=== PATIENT | male | born 1950 | race Caucasian/White ===

== ENCOUNTER 2022-01-17 11:11 | Outpatient (CLI) | payer OTHER, SELFPAY ==
[2022-01-17 21:17] LABS: Chloride* 100 mmol/L (96-114); Sodium* 138 mmol/L (135-149)
[2022-01-17 21:18] LABS: Potassium* 3.7 mmol/L (3.6-5.1)
[2022-01-17 21:20] LABS: Blood Urea Nitrogen* 25 mg/dL (7-30); Carbon Dioxide* 30 mmol/L (20-32); Creatinine* 0.9 mg/dL (0.5-1.5); Estimated Glomerular Filt Rate 92 ml/min
[2022-01-17 21:21] LABS: Calcium* 9.4 mg/dL (8.4-10.6); Glucose* 141 mg/dL (60-115)
== END 2022-01-17 11:12 | disposition home or self-care (01) ==
LOC: LKVREF 11:12
PROVIDERS: PCP Family Medicine; Visit Provider Family Medicine
DX: I10 Essential (primary) hypertension (principal)
CPT/HCPCS: 80048

== ENCOUNTER 2022-04-21 13:01 | Outpatient (CLI) | payer OTHER, SELFPAY ==
[2022-04-21 21:55] LABS: Albumin* 4.6 g/dL (3.3-5.0)
[2022-04-21 21:56] LABS: Chloride* 100 mmol/L (96-114); Sodium* 140 mmol/L (135-149)
[2022-04-21 21:58] LABS: Aspartate Amino Transferase* 25 U/L (12-35); Bilirubin Total* 0.6 mg/dL (0.1-1.5); Carbon Dioxide* 32 mmol/L (20-32); Cholesterol* 143 mg/dL (90-199); Creatinine* 0.9 mg/dL (0.5-1.5); Estimated Glomerular Filt Rate 92 ml/min; Total Protein* 7.6 g/dL (6.0-8.3)
[2022-04-21 21:59] LABS: Alanine Aminotransferase* 28 U/L (4-50); Alkaline Phosphatase* 77 U/L (40-150); Blood Urea Nitrogen* 20 mg/dL (7-30); Calcium* 10.1 mg/dL (8.4-10.6); Glucose* 93 mg/dL (60-115); HDL Cholesterol* 30 mg/dL (>=40); LDL Cholesterol Calculated 72 mg/dL (<100); Triglycerides* 205 mg/dL (40-149)
[2022-04-23 16:12] LABS: Prostate Specific Antigen%Free 18 %; Prostate Specific AntigenTotal 5.6 ng/mL (0.0-4.0)
== END 2022-04-21 13:02 | disposition home or self-care (01) ==
PROVIDERS: PCP Family Medicine; Visit Provider Family Medicine
DX: Z00.00 Encounter for general adult medical examination without abnormal findings (principal); E78.5 Hyperlipidemia, unspecified; I10 Essential (primary) hypertension; I63.9 Cerebral infarction, unspecified; R79.89 Other specified abnormal findings of blood chemistry; R97.20 Elevated prostate specific antigen [PSA]; R53.83 Other fatigue
CPT/HCPCS: 80053; 80061; 84153; 84154; 84443

== ENCOUNTER 2023-05-28 10:40 | Outpatient (CLI) | payer MEDICARE, SELFPAY | END 2023-05-28 10:41 | disposition home or self-care (01) | PROVIDERS: PCP Family Medicine; Visit Provider Family Medicine | DX: Z00.00 Encounter for general adult medical examination without abnormal findings (principal); R53.83 Other fatigue; R73.03 Prediabetes; E66.3 Overweight; I10 Essential (primary) hypertension; E78.5 Hyperlipidemia, unspecified; R79.89 Other specified abnormal findings of blood chemistry; R97.20 Elevated prostate specific antigen [PSA]; N40.1 Benign prostatic hyperplasia with lower urinary tract symptoms; I63.9 Cerebral infarction, unspecified | CPT/HCPCS: 80053; 80061; 82652; 84443; G0103 ==

== ENCOUNTER 2023-06-03 09:18 | Outpatient (CLI) | payer MEDICARE, SELFPAY ==
--- OUTSIDE RECORDS SUMMARY | 2023-06-03 09:41 | XMS_ITS | Encounter Summary ---
Author Name Unknown Organization [facility] Address [address] [place] [address] Care Team Providers Care Booth Usher Name Role Phone Zay Wheeler MD Primary Care Provider +1- [phone] Encounter Details Date Type Department Care Team Description 07/07/1997 Orders Only Emerita Johnson Social History Tobacco Use Types Packs/Day Years Used Date Smoking Tobacco: Never Assessed Sex and Gender Information Value Date Recorded Sex Assigned at Not on file Gender Identity Not on file Sexual Orientation Not on file documented as of this encounter Plan of Treatment Not on file documented as of this encounter Visit Diagnoses Not on filedocumented in this encounter Care Teams Booth Usher Relationship Specialty Start Date End Date Zay Wheeler MD [facility] [address] [place] [address] PCP - General 07/13/1997 documented as of this encounter
--- OUTSIDE RECORDS SUMMARY | 2023-06-03 09:41 | XMS_ITS | Encounter Summary ---
Author Name Unknown Organization [facility] Address [address] [place] [address] Care Team Providers Care Flotation Tank Operator Name Role Phone Zay Wheeler MD Primary Care Provider +1- [phone] Encounter Details Date Type Department Care Team Description 07/05/1997 Orders Only Cure, Winston Mann MD [address] [place] [address] [address] Social History Tobacco Use Types Packs/Day Years Used Date Smoking Tobacco: Never Assessed Sex and Gender Information Value Date Recorded Sex Assigned at Not on file Gender Identity Not on file Sexual Orientation Not on file documented as of this encounter Plan of Treatment Not on file documented as of this encounter Visit Diagnoses Not on filedocumented in this encounter Care Teams Flotation Tank Operator Relationship Specialty Start Date End Date Zay Wheeler MD [facility] [address] [place] [address] PCP - General 07/13/1997 documented as of this encounter
--- OUTSIDE RECORDS SUMMARY | 2023-06-03 09:41 | XMS_ITS | Data Portability ---
Author Name Unknown Address [address] [place] [address] Phone [phone] Organization [facility] Address [address] [facility] [address] [place] [address] Assessment No assessment recorded. Plan of Treatment Reminders Order Date Submit Date Provider Last Modified By Organization Details Last Modified Time Details Appointments None recorded . Lab PSA, serum or plasma 023 07/01/[email or web address], [address], [address], 3 14:00:52 PSA, serum or plasma 021 05/14/[email or web address], [address], [address], 1 14:15:14 PSA, serum or plasma 020 01/11/20 20 [email or web address], [address] [place] [address], [address], 0 16:09:06 Referral None recorded . Procedures None recorded . Surgeries None recorded . Imaging None recorded . Medication Orders None recorded . Patient TargetsNo targets recorded. Patient Instructions Encounter Date Encounter Id Patient Instructions Last Modified By Organization Details Last Modified Time 07/01/2022 [id number] Stable. F/u 1 yr with PSA [email or web address] Not available 06/27/2022 21:58:00 05/14/2021 [id number] Transfer of care . Patient of Dr. Ha. New to me. Extensive review of multiple records, biopsy report, MRI report, old notes. 25 minutes spent in review and in visit. Stable. F/u 1 yr with PSA [email or web address] Not available 05/14/2021 14:14:15 01/11/2020 [id number] d/w pt. we reviewed his elevated psa. he had biopsies in 2009 and 2018. DAVE on both biopsies. aaron remains moderate size and smooth. today's psa is 4.5. we again reviewed ways to reduce prostate cancer risk (fh ca prostate). we will cont to monitor psa, aaron yearly given fh ca prostate. jason Not available 01/11/2020 14:29:32 Reason for Referral None Reported. Results Created Date Observation Date Name Description Value Unit Range Abnormal Flag LastModifiedBy Organization Detail LastModifiedTime 01/11/2020 PSA, serum or plasm a PSA, Total 4.5 ng/ml Not Available _[place] [address] [place] [address], [address], 01/11/2020 14:23:07 05/14/20 21 05/14/2021 PSA, serum or plasm a PSA, Total 5.9 ng/ml Not Available [address] [place] [address], [address], 05/14/2021 14:09:59 07/01/19 23 07/01/2022 PSA, serum or plasm a PSA 5.5 ng/ml 0-4.0 Not Available _[address], [address], 07/01/2022 14:00:05 Result Notes None recorded. Problems Name Status Onset Date Resolution Date Notes Provider Name and Address Organization Details Recorded Time Prostate specific antigen above reference range Active 01/22/20 12 R97.20 : Elevated prostate specific antigen [PSA] - Notes:DAVE on 2 biopsies 04/26/2010 and 05/23/2010. 01/22/2012 PSA 4.32 exam benign. 07/12/2017 PSA 3.96. 06/09/2017 PSA 5.1. AARON remain 2+ and normal. 09/30/2017 MRI prostate 55 mL. 1.3 cm right peripheral zone PI-RADS 3 lesion. No bone lesion or lymphadenopa thy. 10/19/2017 biopsy DAVE left base. MRI lesion benign. 01/11/2020 PSA 4.5. AARON stable 2+. 05/14/21: PSA 5.9 Tory Barraza [facility] 05/12/2023 12:10:26 Problem Notes None recorded. Procedures Surgical History Date Name Laterality Status Provider Name and Address Organization Details Recorded Time 1 MATTRESS PACKER/blood draw completed Geri De Luna [facility] 05/14/2021 13:43:18 0 PSA RESULTS completed Cynthia Drew [facility] 01/11/2020 14:24:20 Imaging Results None recorded. Procedure Notes None recorded. Medical Equipment None Reported. Allergies Allergen ID Allergen Name Allergen Category Reaction Reaction Severity Criticality Documentation Date Start Date Code Code System Note Provider Name and Address Organization Details Recorded Time 831900 hydrochlo rothiazid e medicatio n other Not available Not available 11/10/20192021 5487 RxNorm Tory Madi [facility] 3 12:10:11 769706 Lipitor medicatio n Not available Not available Not available 11/10/20192017 14386 5 RxNorm React ion: sever e back pain Not Available Pending sale to [facility] 0 00:46:25 [id number] simvastat in medicatio n Not available Not available Not available 11/10/20192017 38985 RxNorm React ion: sever e back pain Not Available Pending sale to [facility] 0 00:46:25 [id number] amlodipin e medicatio n other Not available Not available 05/12/20232021 40477 RxNorm Tory Barraza [facility] 3 12:10:11 Medications Name Sig Start Date Stop Date Status Note LastModified by Organization Details LastModified Time clonidine HCl 0.1 mg tablet TAKE 1 TABLET BY MOUTH AT BEDTIME active Not Available Not Available No t Available metoprolol succinate ER 50 mg tablet,exte nded release 24 hr 07/01 completed Not Available Not Available Not Available hydrocodone 5 mg-acetamin ophen 325 mg tablet 07/01 completed Not Available Not Available Not Available prednisone 20 mg tablet TAKE 3 TABLETS DAILY FOR 3 DAYS THEN 2 TABLETS DAILY FOR 3 DAYS THEN 1 TABLET DAILY FOR 3 DAYS 07/01 completed Not Available Not Available Not Available metoprolol succinate ER 100 mg tablet,exte nded release 24 hr TAKE ONE TABLET BY MOUTH EVERY DAY active Not Available Not Available No t Available chlorthalid one 25 mg tablet TAKE 1 TABLET BY MOUTH EVERY DAY active Not Available Not Available No t Available amlodipine 5 mg tablet TAKE ONE TABLET BY MOUTH EVERY DAY active Not Available Not Available No t Available triamcinolo ne acetonide 0.1 % topical cream APPLY TOPICALLY TWICE DAILY active Not Available Not Available No t Available hydrocortis one 2.5 % topical cream with perineal applicator APPLY ONE APPLICATI ON EXTERNAL TWICE A DAY 07/01 completed Not Available Not Available Not Available erythromyci n 5 mg/gram (0.5 %) eye ointment 07/01 completed Not Available Not Available Not Available gabapentin 300 mg capsule TAKE TWO CAPSULES BY MOUTH FOUR TIMES A DAY active Not Available Not Available No t Available methylpredn isolone 4 mg tablets in a dose pack active Not Available Not Available Not Available ketoconazol e 2 % topical cream ONE APPLICATI ON TOPICALLY DAILY NEEDED FOR RASH active Not Available Not Available No t Available losartan 100 mg tablet TAKE ONE TABLET BY MOUTH EVERY DAY active Not Available Not Available No t Available fluticasone propionate 50 mcg/actuati on nasal spray,suspe nsion 07/01 completed Not Available Not Available Not Available diazepam 5 mg tablet 07/01 completed Not Available Not Available Not Available amoxicillin 875 mg-potassiu m clavulanate 125 mg tablet 07/01 completed Not Available Not Available Not Available oxycodone 5 mg tablet 07/01 completed Not Available Not Available Not Available hydroxyzine pamoate 25 mg capsule 07/01 completed Not Available Not Available Not Available rosuvastati n 20 mg tablet TAKE ONE TABLET BY MOUTH EVERY DAY active Not Available Not Available No t Available Fluzone High-Dose 2019-20 (PF) 180 mcg/0.5 mL intramuscul ar syringe 02/07 /2023 completed Not Available Not Available Not Available Vitals Date Recorded Body height Body mass index (BMI) Body weight Provider Name and Address Organization Details Last Updated DateTime 07/01/2022 177.8 cm 31.6 kg/m2 38783.32 g Daria Cortez [facility] 07/01/2022 13:56:53 Date Recorded Body height Body mass index (BMI) Body weight Body temperature Provider Name and Address Organization Details Last Updated DateTime 01/11/2020 177.8 cm 31.6 kg/m2 29234.32 g 97.5 [degF] Cynthia Drew [facility] 01/11/2020 14:06:10 Date Recorded Body height Body mass index (BMI) Body weight Provider Name and Address Organization Details Last Updated DateTime 05/14/2021 177.8 cm 31.6 kg/m2 95305.32 g Geri De Luna [facility] 05/14/2021 13:40:39 Social History Question Answer Notes LastModified by Organizat ion Details LastModified Time Tobacco Smoking Status Former Smoker Tory Barraza [facility] 05/12/2023 12:12:35 What Is Your Level Of Alcohol Consumption? None [email or web address] Information not available 05/12/2023 What Was The Date Of Your Most Recent Tobacco Screening? 07/01/2022 [email or web address] Information not available 07/01/2022 Do You Or Have You Ever Used Smokeless Tobacco? Never Used Smokeless Tobacco [email or web address] Information not available 01/11/2020 Sex: Male Functional Status None recorded. Mental Status None recorded. Family History Relationship Description Onset Age of this Age Resolved Age Notes Father Family history of pr ostate cancer Medical History Condition Response Diabetes N Sexually Transmitted Infection N Other Y Bleeding Disorder N High Blood Pressure Y Kidney Stones N Cancer N Lung Disease N Depression N High Cholesterol Y GERD/Acid Reflux N Heart Disease N Immunizations Vaccine Type Date Status Provider Name and Address Organization Details Recorded Time zoster, unspecified formulation 09/20/2001 completed Tory Barraza [facility] 05/12/2023 12:13:52 pneumococcal polysaccharide PPV23 11/22/2020 [facility] 05/12/2023 12:10:32 influenza, high-dose, quadrivalent 06/03/2021 completed Tory Barraza null, [facility] 05/12/2023 12:10:32 influenza, high-dose, quadrivalent 04/21/2022 completed Tory Barraza null, [facility] 05/12/2023 12:10:32 Influenza vaccine, quadrivalent, adjuvanted 02/20/2020 completed Tory Barraza null, [facility] 05/12/2023 12:10:32 Influenza vaccine, quadrivalent, adjuvanted 03/12/2021 completed Tory Barraza null, [facility] 05/12/2023 12:10:32 COVID-19, mRNA, LNP-S, PF, 30 mcg/0.3 mL dose 07/28/2020 completed Tory Barraza null, [facility] 05/12/2023 12:10:32 COVID-19, mRNA, LNP-S, PF, 30 mcg/0.3 mL dose 08/18/2020 completed Tory Barraza null, [facility] 05/12/2023 12:10:32 COVID-19, mRNA, LNP-S, PF, 30 mcg/0.3 mL dose 03/17/2021 completed Tory Barraza null, [facility] 05/12/2023 12:10:32 Tdap 11/24/2007 completed Tory Barraza null, [facility] 05/12/2023 12:10:32 Tdap 05/12/2011 completed Tory Barraza null, [facility] 05/12/2023 12:10:32 Pneumococcal conjugate PCV 13 12/06/2018 completed Tory Barraza null, [facility] 05/12/2023 12:10:32 Influenza, high dose seasonal 07/08/2018 completed Tory Barraza null, [facility] 05/12/2023 12:10:32 Influenza, high dose seasonal 05/12/2019 completed Tory Barraza null, [facility] 05/12/2023 12:10:32 Influenza, seasonal, injectable 03/10/2003 completed Tory Barraza null, [facility] 05/12/2023 12:10:32 Influenza, seasonal, injectable 03/14/1999 completed Tory Barraza null, [facility] 05/12/2023 12:10:32 Influenza, seasonal, injectable 03/17/2005 completed Tory Barraza null, [facility] 05/12/2023 12:10:32 Influenza, seasonal, injectable 03/31/2002 completed Tory Barraza null, [facility] 05/12/2023 12:10:32 Influenza, seasonal, injectable 04/22/2000 completed Tory Barraza null, [facility] 05/12/2023 12:10:32 Influenza, seasonal, injectable, preservative free 03/20/2014 completed [facility] 05/12/2023 12:10:32 Td (adult), 2 Lf tetanus toxoid, preservative free, adsorbed 07/05/1997 completed [facility] 05/12/2023 12:10:32 influenza, injectable, quadrivalent, preservative free 05/07/2015 completed Tory Barraza null, [facility] 05/12/2023 12:10:32 influenza, injectable, quadrivalent, preservative free 05/22/2016 completed [facility] 05/12/2023 12:10:33 Past Encounters Encounter ID Performer Location Encounter Start Date Encounter Closed Date Diagnosis/Indication [id number] Chris Ha MD [address] [address] 01/11/2020 13:52:12 01/11/2020 16:20:32 Prostate specific antigen above reference range Benign prostatic hyperplasia with outflow obstruction Nocturia [id number] Jerry Milligan MD [address] [address] 05/14/2021 13:27:30 05/14/2021 14:42:55 Prostate specific antigen above reference range [id number] MD ISAIAS Bashir[address] [address] 07/01/2022 13:42:31 07/04/2022 10:37:08 Prostate specific antigen above reference range Health Concerns Section Related Observation LastModified by Organization Detai ls LastModified Time None Recorded Concern Status LastModified by Organization Details LastModified Time None Recorded Advance Directives Directive None Recorded Payers Encounter Date Sequence Insurance Name Policy Number Policy Maldonado Covered Member ID Maldonado Member ID Guarantor Name 07/01/2022 1 [facility] [employer] - MEDICARE COST [id number] Johnathan Juan J Marr [id number] Johnathan Paulino Marr 05/14/2021 1 [employer] (MEDICARE REPLACEMENT/ ADVANTAGE - HMO) Johnathan Juan J Marr [id number] Johnathan Marr 01/11/2020 1 [employer] (MEDICARE REPLACEMENT/ ADVANTAGE - HMO) Johnathan Juan J Marr [id number] Johnathan Paulino Marr Notes Date Note Type Note Provider Name and Address Organization Details Recorded Time 01/11/2020 text/html HPI Notes: elevated psa, DAVE hx. Father with prostate cancer age 80 - advanced. treated with seeds. many years later unrelated cause. biopsy 2009 - DAVE on initial and f/u biopsy. last psa 5.1. f/u biopsy showed 1 area DAVE. prostate mri was pi rads 3. flow mildly decreased, nocturia 2x. Chris Ha MD [address] [facility],[address], [place], [address], [facility] 01/12/2020 14:19:19 05/14/2021 text/html HPI Notes: 05/14/21 Transfer of care. Patient of Dr. Ha. New to me. Extensive review of multiple records, biopsy report, MRI report, old notes. --Father with prostate cancer age 80 - advanced. treated with seeds. many years later unrelated cause flow mildly decreased, nocturia 2x. --History of PSA elevations and atypical biopsy twice in 2009. Family history of prostate cancer. 01/22/2012 PSA 4.32 exam benign. 07/12/2017 PSA 3.96. 06/09/2017 PSA 5.1. AARON remain 2+ and normal. 09/30/2017 MRI prostate 55 mL. 1.3 cm right peripheral zone PI-RADS 3 lesion. No bone lesion or lymphadenopathy. 10/19/2017 biopsy DAVE left base. MRI lesion benign. 01/11/2020 PSA 4.5. AARON stable 2+. --05/14/21 PSA 5.9. Nocturia 2x. Not on prostate meds. Jerry Milligan MD [address] [facility],[address], [place], [address], [facility] 05/14/2021 14:15:18 07/01/2022 text/html HPI Notes: 05/14/21 Transfer of care. Patient of Dr. Ha. New to me. Extensive review of multiple records, biopsy report, MRI report, old notes. --Father with prostate cancer age 80 - advanced. treated with seeds. many years later unrelated cause flow mildly decreased, nocturia 2x. --History of PSA elevations and atypical biopsy twice in 2009. Family history of prostate cancer. 01/22/2012 PSA 4.32 exam benign. 07/12/2017 PSA 3.96. 06/09/2017 PSA 5.1. AARON remain 2+ and normal. 09/30/2017 MRI prostate 55 mL. 1.3 cm right peripheral zone PI-RADS 3 lesion. No bone lesion or lymphadenopathy. 10/19/2017 biopsy DAVE left base. MRI lesion benign. 01/11/2020 PSA 4.5. AARON stable 2+. --05/14/21 PSA 5.9. Nocturia 2x. Not on prostate meds. 07/01/22: --Nocturia 2x. [place]. Daytime a few times. Stopped alcohol 6 mo ago (after stroke). apex anodular, base not felt. PSA 5.5. Plan 1 y f/u with PSA. Consider MRI if continued rise. Jerry Milligan MD [address] [facility],[address], [place], [address], [facility] 07/01/2022 14:15:57
--- OUTSIDE RECORDS SUMMARY | 2023-06-03 09:41 | XMS_ITS | Clinical Summary ---
Author Name Unknown Organization [facility] Address [address] [place] [address] Care Team Providers Care Rheumatologist Name Role Phone Zay Wheeler MD Primary Care Provider [phone]- [phone] Source Comments You are receiving this document as you are listed as the primary care provider,follow-up provider, or the patient has been referred to you for consultation.This is in compliance with the Medicare andCommunity [facility] Hospitalcaid EHR Incentive Program,which states Providers who transition their patient to another setting of careor provider of care or refers their patient to another provider of care shouldprovide summary care record for each transition of care or referral. [facility] Allergies Active Allergy Reactions Criticality Noted Date Comments Amlodipine Other, see comments Medium 12/05/2021 Swelling of ankles and feet Hydrochlorothiazide Other, see comments Medium 022 Back pain Medications Medication Sig Dispensed Refills Start Date End Date Status VIAGRA 50MG ORAL TABS 1/2 to 1 tab 30-60 inutes before sex 6 11 07/29/2002 Active cloNIDine (CATAPRES) 0.1 MG tablet Take 0.1 mg by mouth two times a day. 0 09/03/2021 Active losartan (COZAAR) 100 MG tablet Take 100 mg by mouth daily. 0 11/05/2021 Active metoprolol succinate (TOPROL XL) 100 MG 24 hour release tablet Take 100 mg by mouth daily. 0 11/05/2021 Active rosuvastatin (CRESTOR) 20 MG tablet Take 1 Tablet (20 mg) by mouth daily at bedtime. 0 12/07/2021 Active aspirin 325 MG tablet Take 1 Tablet (325 mg) by mouth daily. Do not start before December 08, 2021. 100 Tablet 3 12/08/2021 Active chlorthalidone (HYGROTON) 25 MG tabletIndications: Hypertension Take 1 Tablet (25 mg) by mouth daily. Indications: High Blood Pressure Disorder Do not start before December 08, 2021. 30 Tablet 0 12/08/2021 Active gabapentin (NEURONTIN) 300 MG capsuleIndications :Neuropathic Pain Take 1 Capsule (300 mg) by mouth three times a day. Indications: Neuropathic Pain 90 Capsule 0 12/07/2021 Active Active Problems Problem Noted Date Diagnosed Date Cerebrovascular accident (CV A) due to occlusion of right cerebellar artery 12/06/2021 Hyperlipidemia 12/05/2021 Essential hypertension 12/05/2021 Cervical radiculopathy 12/05/2021 Testicular hypofunction 08/25/2002 Overview: Other testicular hypofunction (HRC) Immunizations Name Administration Dates Next Due Flu Vac (3+ yrs) 03/10/2003,03/31/2002, 0,03/14/1999 Td 07/05/1997 Varicella 09/29/1997(Deferred: Immune by Ryan howell) Social History Tobacco Use Types Packs/Day Years Used Date Smoking Tobacco: Former Tobacco Cessation:Counseling Given: Not Answered Alcohol Use Standard Drinks/Week Comments Not Currently 0 (1 standard drink = 0.6 oz pur e alcohol) Sex and Gender Information Value Date Recorded Sex Assigned at Not on file Gender Identity Not on file Sexual Orientation Not on file Last Filed Vital Signs Vital Sign Reading Time Taken Comments Blood Pressure 110/58 02/04/2022 1:06 PM CDT Pulse 66 02/04/2022 1:06 PM CDT Temperature 36.2 ??C (97.2 ??F) 12/07/2021 1:00 PM CD T Respiratory Rate 16 12/07/2021 8:03 AM CDT Oxygen Saturation 99% 12/07/2021 1:00 PM CDT Inhaled Oxygen Concentration - - Weight 107.1 kg (236 lb 3.2 oz) 02/04/2022 1:06 PM CDT Height 181.6 cm (5' 11.5) 12/06/2021 1 1:00 AM CDT Body Mass Index 32.49 12/06/2021 11:00 AM CDT Plan of Treatment Health Maintenance Due Date Last Done Comments Colon Cancer Screening Plan Due 1950 Hep C Screening (Preventive Services) 1950 COVID-19 Vaccine (#1) 03/22/1951 Zoster/Shingles (1 of 2) 09/20/2001 DTaP/Tdap/Td (3 - Tdap) 05/12/2021 05/12/20 11, 11/24/2007, 07/05/1997 Influenza (#1) 2023 06/03/2021, 02/22, 02/20/2020, Additional history exists Medicare Annual Wellness Visit 05/25/2023 Cholesterol 12/05/2026 12/05/2021, 11/2002, 10/01/2001, Additional history exists Pneumococcal 65+ Yrs Completed 11/22/2020, 12/07/19 HepA Aged Out No longer eligi ble based on patient's age to complete this topic HepB Aged Out No longer eligi ble based on patient's age to complete this topic Hib Aged Out No longer eligi ble based on patient's age to complete this topic IPV (Polio) Aged Out No longer eligi ble based on patient's age to complete this topic MCV4 Aged Out No longer eligi ble based on patient's age to complete this topic Advance Directives Latest Code Status on File Code Status Date Activated Date Inactivated Comments Full Code 12/05/2021 5:55 PM 12/07/2021 3:28 PM Care Teams Rheumatologist Relationship Specialty Start Date End Date Zay Wheeler MD [address] [address] PCP - General 07/13/1997
--- OUTSIDE RECORDS SUMMARY | 2023-06-03 09:42 | XMS_ITS | Encounter Summary ---
Author Name Unknown Organization [facility] Address [address], [place] [address] Care Team Providers Care Freight Elevator Operator Name Role Phone Zay Wheeler MD Primary Care Provider [phone]- [phone] Encounter Details Date Type Department Care Team Description 09/05/1995 Orders Only Isaiah Padgett [address] [id number] Social History Tobacco Use Types Packs/Day Years Used Date Smoking Tobacco: Never Assessed Sex and Gender Information Value Date Recorded Sex Assigned at Not on file Gender Identity Not on file Sexual Orientation Not on file documented as of this encounter Plan of Treatment Not on file documented as of this encounter Visit Diagnoses Not on filedocumented in this encounter Care Teams Freight Elevator Operator Relationship Specialty Start Date End Date Zay Wheeler MD [facility] [address] [place], [place] [id number] PCP - General 07/13/1997 documented as of this encounter
--- OUTSIDE RECORDS SUMMARY | 2023-06-03 09:42 | XMS_ITS | Encounter Summary ---
Author Name Unknown Organization [facility] Address [address] [place] [id number] Care Team Providers Care Instrumentation Engineer Name Role Phone Zay Wheeler MD Primary Care Provider [phone]- [phone] Encounter Details Date Type Department Care Team Description 12/04/1995 Orders Only Morro An MD [address] [place] [address] Social History Tobacco Use Types Packs/Day Years Used Date Smoking Tobacco: Never Assessed Sex and Gender Information Value Date Recorded Sex Assigned at Not on file Gender Identity Not on file Sexual Orientation Not on file documented as of this encounter Plan of Treatment Not on file documented as of this encounter Visit Diagnoses Not on filedocumented in this encounter Care Teams Instrumentation Engineer Relationship Specialty Start Date End Date Zay Wheeler MD [facility] [address] [place] [address] PCP - General 07/13/1997 documented as of this encounter
--- NOTE | 2023-06-03 09:45 | CRLHL7_ITS ---
For Patients: As a result of the Cures Act, medical imaging exams and procedure reports are released immediately into your electronic medical record. You may view this report before your referring provider. If you have questions, please contact your health care provider. Examination: US abdominal aorta Indication: Abdominal aortic aneurysm screening. Technique: Gould scale and color Doppler images of the aorta and common iliac arteries are obtained. Comparison: None available Findings: Proximal aorta: 1.5 x 1.9 cm Mid aorta: 1.7 x 1.8 cm Distal aorta: 1.3 x 1.4 cm Right common iliac artery: 0.9 x 1.3 cm Left common iliac artery: 0.9 x 1.3 cm Recommended imaging interval for ectatic aorta: 2.5-2.9 cm: 5 years 3.0-3.4 cm: 3 years 3.5-3.9 cm: 2 years 4.0-4.4 cm: 1 year 4.5-4.9 cm: 6 months Impression: No evidence of abdominal aortic aneurysm. Dictated by Curt Park MD @ 06/03/2023 4:14:05 PM (Electronically Signed)
== END 2023-06-03 09:19 | disposition home or self-care (01) ==
PROVIDERS: PCP Family Medicine; Visit Provider Family Medicine
DX: Z13.6 Encounter for screening for cardiovascular disorders (principal)
CPT/HCPCS: 76706

== ENCOUNTER 2023-08-27 10:29 | Outpatient (CLI) | payer MEDICARE, SELFPAY | END 2023-08-27 10:30 | disposition home or self-care (01) | LOC: LKVREF 10:30 | PROVIDERS: PCP Family Medicine; Visit Provider Family Medicine | DX: R97.20 Elevated prostate specific antigen [PSA] (principal) | CPT/HCPCS: 84153; 84154 ==

== ENCOUNTER 2024-05-26 10:14 | Outpatient (CLI) | payer MEDICARE, SELFPAY | END 2024-05-26 10:15 | disposition home or self-care (01) | LOC: LKVREF 10:17 | PROVIDERS: PCP Family Medicine; Visit Provider Family Medicine | DX: E78.5 Hyperlipidemia, unspecified (principal); I10 Essential (primary) hypertension; R79.89 Other specified abnormal findings of blood chemistry | CPT/HCPCS: 80053; 80061 ==